=== PATIENT | female | born 2005 | race African-American/Black ===

== ENCOUNTER 2023-06-20 15:41 | Emergency (ER) | payer MEDICAID ==
[~2023-06-20] VITALS: Ht 162.6 cm; Wt 65.0 kg
[2023-06-20 16:02] VITALS: BP 107/67; O2SAT 100
[2023-06-20] MEDS ORDERED: NAPR-1176 MT (17:28)
[2023-06-20] MEDS ORDERED: KETOROLAC 30MG/ML VIAL IM ONE (17:30)
[2023-06-20 18:16] VITALS: PULSE 70; RESP 12; TEMP 98.1
== END 2023-06-20 18:19 | disposition home or self-care (01) ==
LOC: ER 15:41
DX: L91.0 Hypertrophic scar (principal)
CPT/HCPCS: 81025; 96372; 99283; J1885; Z7610